=== PATIENT | male | born 1965 | race Caucasian/White ===

== ENCOUNTER 2019-09-23 09:02 | Inpatient (IN) ==
[2019-09-23 09:36] LABS: Basophils % 0.7 %; Eosinophils # 0.1 K/mcL (0.0-0.6); Eosinophils % 2.4 %; Hemoglobin 16.2 g/dL (12.9-16.9); Immature Granulocytes % 0.5 % (0-4); Lymphocytes # 1.8 K/mcL (0.6-4.6); Lymphocytes % 43.7 %; Mean Corpuscular HGB Conc 33.8 g/dL (31.6-35.5); Mean Corpuscular Hemoglobin 28.8 pg (28.0-33.3); Mean Corpuscular Volume 85.3 fL (83.0-100.0); Mean Platelet Volume 10.7 fL (9.4-12.4); Monocytes # 0.5 K/mcL (0.0-1.3); Neutrophils # 1.8 K/mcL (1.6-8.9); Platelet Count 258 K/mcL (140-400); Red Blood Count 5.63 M/mcL (4.19-5.50); Segmented Neutrophils % 41.7 %; White Blood Count 4.2 K/mcL (4.3-11.1)
[2019-09-23] MEDS ORDERED: cefOXitin 2,000 MG in Water for inj. (sterile) 20 ML IVP ONE (09:40)
[2019-09-23] MEDS ORDERED: Ringers Solution, Lactated 1,000 ML IVC SCH (09:45)
[2019-09-23] MEDS ORDERED: Acetaminophen IV 1,000 MG/100 ML INFUS..BTL IVPB ONE (09:50)
[2019-09-23] MEDS ORDERED: Albuterol 2.5 MG/3 ML NEBULIZER IH ONE (09:50)
[2019-09-23] MEDS ORDERED: Famotidine 20 MG/2 ML VIAL IVP ONE (09:50)
[2019-09-23] MEDS ORDERED: *HR* HYDROmorphone (PF) 1 MG/ML SYRINGE IVP PRN (09:51)
[2019-09-23] MEDS ORDERED: Ondansetron 4 MG/2 ML VIAL IVP ONE (09:51)
[2019-09-23] MEDS ORDERED: *HR* Promethazine 25 MG/ML VIAL IVP PRN (09:51)
[2019-09-23 09:53] LABS: BUN/Creatinine Ratio 10 (6-26); Blood Urea Nitrogen 10 mg/dL (6-20); Calcium 9.6 mg/dL (8.6-10.3); Carbon Dioxide 26 mEq/L (23-29); Chloride 103 mEq/L (98-107); Glucose 95 mg/dL (70-105); Osmolality,Calculated 285 (280-300); Potassium 3.8 mEq/L (3.5-5.1); Sodium 138 mEq/L (136-145); eGFR For African Americans > 60 (> 60); eGFR For Non-African Americans > 60 (> 60)
[2019-09-23] MEDS ORDERED: Ondansetron 4 MG/2 ML VIAL ONE (10:12)
[2019-09-23] MEDS ORDERED: *HR* Rocuronium Bromide 50 MG/5 ML VIAL ONE ×2 (10:12→12:41)
[2019-09-23] MEDS ORDERED: Lidocaine -MPF 2% 2 ML VIAL ONE (10:12)
[2019-09-23] MEDS ORDERED: Dexamethasone 4 MG/ML VIAL ONE (10:12)
[2019-09-23] MEDS ORDERED: *HR* HYDROMORPHONE 2 MG/ML VIAL ONE (10:13)
[2019-09-23] MEDS ORDERED: *HR* FentaNYL (PF) 100 MCG/2 ML VIAL ONE (10:13)
[2019-09-23] MEDS ORDERED: *HR* Midazolam HCl 2 MG/2 ML VIAL ONE (10:13)
[2019-09-23 10:16] LABS: Platelet Estimate Normal (Normal); Reactive Lymphocytes Present (Not Present)
[2019-09-23] MEDS ORDERED: *HR* Propofol 200 MG/20 ML VIAL IVP ONE (10:24)
[2019-09-23] MEDS ORDERED: Ketorolac 30 MG/ML VIAL ONE (12:42)
[2019-09-23] MEDS ORDERED: Naloxone 0.4 MG/ML INJ IVP PRN (15:13)
[2019-09-23] MEDS ORDERED: Ondansetron 4 MG/2 ML VIAL IVP PRN (15:13)
[2019-09-23] MEDS: 0.9 % Sodium Chloride 1,000 ML IVC SCH (15:48)
[2019-09-23] MEDS: Ketorolac 15 MG/ML VIAL IVP SCH (17:53)
[2019-09-23] MEDS: Acetaminophen IV 1,000 MG/100 ML INFUS..BTL IVPB SCH (17:55)
[2019-09-24] MEDS: Ketorolac 15 MG/ML VIAL IVP SCH ×4 (00:02→18:15)
[2019-09-24] MEDS: Acetaminophen IV 1,000 MG/100 ML INFUS..BTL IVPB SCH ×2 (00:03→05:32)
[2019-09-24 05:19] LABS: Basophils % 0.1 %; Hematocrit 41.4 % (37.5-50.1); Immature Granulocytes % 0.4 % (0-4); Lymphocytes % 16.8 %; Mean Corpuscular HGB Conc 34.3 g/dL (31.6-35.5); Mean Corpuscular Volume 84.7 fL (83.0-100.0); Mean Platelet Volume 10.8 fL (9.4-12.4); Monocytes # 0.9 K/mcL (0.0-1.3); Platelet Count 233 K/mcL (140-400); Red Blood Count 4.89 M/mcL (4.19-5.50); Red Cell Distribution Width 12.9 % (11.5-14.5); Segmented Neutrophils % 71.7 %
[2019-09-24 05:27] LABS: Hemoglobin 14.2 g/dL (12.9-16.9); Lymphocytes # 1.3 K/mcL (0.6-4.6); Neutrophils # 5.7 K/mcL (1.6-8.9)
[2019-09-24] MEDS: 0.9 % Sodium Chloride 1,000 ML IVC SCH (05:31)
[2019-09-24] MEDS: *HR* Heparin 5,000 UNIT/ML VIAL SQ SCH ×2 (05:32→18:16)
[2019-09-24 05:35] LABS: BUN/Creatinine Ratio 14 (6-26); Blood Urea Nitrogen 12 mg/dL (6-20); Calcium 8.8 mg/dL (8.6-10.3); Carbon Dioxide 26 mEq/L (23-29); Chloride 102 mEq/L (98-107); Glucose 134 mg/dL (70-105); Osmolality,Calculated 288 (280-300); Potassium 4.3 mEq/L (3.5-5.1); Sodium 138 mEq/L (136-145); eGFR For African Americans > 60 (> 60); eGFR For Non-African Americans > 60 (> 60)
[2019-09-24] MEDS ORDERED: Acetaminophen 325 MG TABLET PO PRN (08:55)
[2019-09-24] MEDS ORDERED: Albuterol 2.5 MG/3 ML NEBULIZER IH PRN (10:18)
[2019-09-24] MEDS ORDERED: Ondansetron 4 MG/2 ML VIAL IVP PRN (10:19)
[2019-09-25] MEDS: Ketorolac 15 MG/ML VIAL IVP SCH ×3 (00:15→12:09)
[2019-09-25] MEDS: *HR* Heparin 5,000 UNIT/ML VIAL SQ SCH (06:13)
[2019-09-25 09:56] VITALS: BP 120/80
== END 2019-09-25 14:19 | disposition home or self-care (01) | DRG 331 ==
LOC: SAMDAY 09:02 → 3ANU 14:45
PROVIDERS: ADMIT Surgery; ATTEND Surgery